=== PATIENT | female | born 1955 | race African-American/Black ===

== ENCOUNTER 2021-04-03 17:06 | Emergency (ER) | payer MEDICARE ==
[~2021-04-03 17:06] MED LIST: ALLO100T MT; AMLO5TAB4 MT; ASPI-1497 MT; DIPH25CA83 PO; FAMO-135 PO; GABA-532 MT; HYDR12.54 MT; P20 PO
== END 2021-04-03 18:09 | disposition left against medical advice (07) ==
LOC: ER 17:06
DX: Z53.21 Procedure and treatment not carried out due to patient leaving prior to being seen by health care provider (principal)

== ENCOUNTER 2022-07-23 15:45 | Emergency (ER) | payer MEDICARE ==
[~2022-07-23] VITALS: Ht 154.9 cm; Wt 96.0 kg
[2022-07-23 16:27] LABS: EOSINOPHILS % 1.5 % (0.0-5.0); HEMATOCRIT. 47.7 % (36.0-48.0); HEMOGLOBIN. 16.4 g/dL (12.0-16.0); LYMPHOCYTES % 22.5 % (20.0-50.0); MEAN CORPUSCULAR HEMOGLOBIN 32.7 pg (28.0-32.0); MEAN CORPUSCULAR VOLUME 95.2 fL (81.0-99.0); MEAN PLATELET VOLUME 8.3 fl (7.4-10.4); MONOCYTES % 4.9 % (2.0-8.0); NEUTROPHILS % 70.1 % (40.0-76.0); PLATELET 326 x1000/uL (130-400); RED BLOOD CELL COUNT 5.02 mill/uL (4.2-5.4); RED CELL DISTRIBUTION WIDTH 14.1 % (11.6-14.6)
[2022-07-23 16:34] LABS: CHLORIDE 103 mEq/L (98-107)
[2022-07-23] MEDS ORDERED: ASPIRIN 325MG TABLET PO ONE (19:15)
[2022-07-23] MEDS ORDERED: POTASSIUM CHLORIDE 20MEQ TABLET SR PO ONE (19:15)
[2022-07-23] MEDS: ASPIRIN 325MG TABLET PO NR ×2 (21:17→21:18)
[2022-07-23] MEDS: POTASSIUM CHLORIDE 20MEQ TABLET SR PO NR (21:18)
[2022-07-24 08:00] VITALS: BP 126/77
== END 2022-07-24 09:00 | disposition short-term general hospital (02) ==
LOC: ER 15:45 → EDBEDREQTM 07-24 06:50 → EDBEDREQ 07-24 06:50 → ER 07-24 09:00 → CANBEDREQ 07-25 04:04
DX: G45.9 Transient cerebral ischemic attack, unspecified (principal); I63.9 Cerebral infarction, unspecified; I10 Essential (primary) hypertension; E87.6 Hypokalemia; Z88.8 Allergy status to other drugs, medicaments and biological substances; Z79.82 Long term (current) use of aspirin; Z20.822 Contact with and (suspected) exposure to COVID-19
CPT/HCPCS: 36415; 70450; 71045; 80053; 83880; 84484; 85025; 87426; 93005; 99285; C9803

== ENCOUNTER 2023-12-28 19:04 | Emergency (ER) | payer MEDICARE ==
[~2023-12-28] VITALS: Ht 165.1 cm; Wt 91.0 kg
[2023-12-28 19:09] VITALS: TEMP 98.5; O2SAT 97
[2023-12-28 20:16] LABS: BASOPHILS % 0.9 % (0.0-2.0); EOSINOPHILS % 2.2 % (0.0-5.0); HEMATOCRIT. 42.4 % (36.0-48.0); HEMOGLOBIN. 14.6 g/dL (12.0-16.0); MEAN CORPUSCULAR HEMOGLOBIN 32.2 pg (28.0-32.0); MEAN CORPUSCULAR HGB CONC 34.4 g/dL (31.0-37.0); MEAN CORPUSCULAR VOLUME 93.6 fL (81.0-99.0); MEAN PLATELET VOLUME 7.9 fl (7.4-10.4); MONOCYTES % 8.3 % (2.0-8.0); NEUTROPHILS % 70.6 % (40.0-76.0); PLATELET 434 x1000/uL (130-400); RED BLOOD CELL COUNT 4.53 mill/uL (4.2-5.4); RED CELL DISTRIBUTION WIDTH 13.4 % (11.6-14.6); WHITE BLOOD COUNT 8.8 x1000/uL (4.5-11.0)
[2023-12-28 20:22] LABS: CHLORIDE 104 mEq/L (98-107); POTASSIUM 3.1 mEq/L (3.5-5.1); SODIUM 139 mEq/L (136-145)
[2023-12-28 20:23] LABS: CALCIUM 9.9 mg/dL (8.7-10.4); CARBON DIOXIDE 30 mEq/L (21-32)
[2023-12-28 20:28] LABS: CREATININE 0.8 mg/dL (0.6-1.0); GLUCOSE 114 mg/dL (70-105); UREA NITROGEN BLOOD 7 mg/dL (9-23)
[2023-12-28 20:30] LABS: ALANINE AMINOTRANSFERASE 61 IU/L (10-49); ALBUMIN 4.4 g/dL (3.2-4.8); ASPARTATE AMINOTRANSFERASE 73 IU/L (<34); BILIRUBIN DIRECT 0.2 mg/dL (<=3.0)
[2023-12-28 20:31] LABS: BILIRUBIN TOTAL 0.5 mg/dL (0.1-1.0)
[2023-12-28] MEDS: POTASSIUM CHLORIDE 20MEQ TABLET SR PO ONE (21:07)
[2023-12-28 21:10] VITALS: BP 147/88; PULSE 105; RESP 16
== END 2023-12-28 21:31 | disposition home or self-care (01) ==
LOC: ER 19:04
DX: S50.12XA Contusion of left forearm, initial encounter (principal); R10.9 Unspecified abdominal pain; I10 Essential (primary) hypertension; Z79.899 Other long term (current) drug therapy; X58.XXXA Exposure to other specified factors, initial encounter; Y93.89 Activity, other specified; Y92.89 Other specified places as the place of occurrence of the external cause; Y99.8 Other external cause status
CPT/HCPCS: 36415; 80048; 80076; 85025; 99283

== ENCOUNTER 2024-11-18 21:40 | Emergency (ER) | payer MEDICARE ==
[~2024-11-18] VITALS: Ht 154.9 cm; Wt 96.0 kg
[~2024-11-18 21:40] MED LIST changes: -AMLO5TAB4 MT; +AMLO5TAB5 MT; +GABA-1180 MT; -GABA-532 MT
[2024-11-18 22:15] VITALS: O2SAT 99
[2024-11-18 22:27] VITALS: BP 172/101; PULSE 94; RESP 18; TEMP 37; O2SAT 98
[2024-11-18] MEDS ORDERED: BACITRACIN ZINC OINT UDPKT TOP ONE (23:30)
[2024-11-18] MEDS ORDERED: LIDOCAINE HCL/PF 1% 10 MG/ML 5ML VIAL INFIL ONE (23:30)
[2024-11-19] MEDS ORDERED: AMOX1TAB16 MT (00:02)
[2024-11-19] MEDS: IBUPROFEN 400MG TABLET PO ONE (01:07)
[2024-11-19] MEDS: TETANUS, DIPHTHERIA, PERTUSSIS VAC/PF 0.5ML (>10YR OLD) IM ONE (01:07)
== END 2024-11-19 01:12 | disposition home or self-care (01) ==
LOC: ER 21:40
DX: S61.431A Puncture wound without foreign body of right hand, initial encounter (principal); I10 Essential (primary) hypertension; Z88.8 Allergy status to other drugs, medicaments and biological substances; Z79.899 Other long term (current) drug therapy; Z79.82 Long term (current) use of aspirin; W54.0XXA Bitten by dog, initial encounter; Y93.89 Activity, other specified; Y92.89 Other specified places as the place of occurrence of the external cause; Y99.8 Other external cause status
CPT/HCPCS: 90471; 90715; 99283; J2003